=== PATIENT | female | born 1940 | race Caucasian/White ===

== ENCOUNTER 2017-09-18 01:27 | Emergency (ER) | payer MEDICARE ==
[2017-09-18] MEDS ORDERED: Ondansetron INJ* 2 MG/ML VIAL IV ONE (02:11)
[2017-09-18] MEDS ORDERED: Morphine INJ* 4 MG/ML 1 ML CARPUJECT IV ONE (02:11)
[2017-09-18] MEDS ORDERED: NS 0.9% 1000 ML* 1,000 ML IV ONE (02:11)
--- OUTSIDE RECORDS SUMMARY | 2017-09-18 02:21 | XMS REPORT ---
:1940 External Reference #:[id number] Author Organization [employer] Address [address] [place] [address] Phone [phone] Care Team Providers Name Role Phone Kenneth Cid MD Care Team Information Telephone Operator Unavailable Kenneth Cid MD Primary Care Physician Unavailable Payers Type Date Identification Numbers Payment Provider Subscriber Commercial Policy Number: [id number] BS [employer] Nneka Ortiz PayID: [id number] [address] [address] [place] [address] Problems Description No Information Family History Date Family Member(s) Problem(s) Comments General Asthma And Allergies General Hearing Loss Social History Type Date Description Comments Marital Status Marital Status Occupation Retired Occupation Retired Cigarette Use Never Smoked Cigarettes Cigarette Use Never Smoked Cigarettes ETOH Use Drinks Alcoholic Beverages Rarely ETOH Use Rare Use Of Alcohol Recreational Drug Use Never Used Drugs Recreational Drug Use Never Used Drugs Allergies, Adverse Reactions, Alerts Date Description Reaction Status Severity Comments 11/27/2008 NKDA active 04/05/2013 No Known Drug Allergy active 04/05/2013 Dust active 04/05/2013 Pollen active Medications Medication Date Status Form Strength Qnty SIG Indications Ordering Provider Ambien Active Unknown Janumet Active Tablets 50-1000 Unknown Janumet Active bid Unknown 00 Meloxicam Active Tablets 7.5mg 10tabs qday Unknown Zyrtec Active Unknown 00 Vitamind D Active Unknown 00 Ambien Active Tablets 5mg 10tabs 1 po hs Unknown 00 prn Zyrtec Allergy Active Tablets 10mg 1 by Unknown 00 mouth every day Meloxicam Active Tablets 1 by Unknown 00 mouth every day Glimepiride Active Tablets Unknown 00 Aspirin Low Active Tablets 1 by Unknown Dose 00 mouth every day Vital Signs Date Vital Result Comment 09/15/2017 Weight 227.00 lb Height 65 inches 5'5" BMI (Body Mass Index) 37.8 kg/m2 Heart Rate 78 /min O2 % BldC Oximetry 90 % Body Temperature 98.6 F Pain Level 0 01/26/2017 Weight 225.00 lb Height 65 inches 5'5" BMI (Body Mass Index) 37.4 kg/m2 BP Systolic 127 mmHg BP Diastolic 92 mmHg Heart Rate 91 /min O2 % BldC Oximetry 90 % Body Temperature 96.6 F Pain Level 0 09/28/2014 Weight 223.00 lb Height 65 inches 5'5" BMI (Body Mass Index) 37.1 kg/m2 BP Systolic 128 mmHg BP Diastolic 80 mmHg Heart Rate 85 /min O2 % BldC Oximetry 92 % Body Temperature 97.5 F Pain Level 0 04/05/2013 Weight 225.00 lb Height 64.5 inches 5'4.50" BMI (Body Mass Index) 38.0 kg/m2 BP Systolic 134 mmHg BP Diastolic 88 mmHg Heart Rate 78 /min O2 % BldC Oximetry 92 % Body Temperature 98.4 F 11/27/2008 Weight 212.00 lb HT And WT Per PT Height 65 inches 5'5" BMI (Body Mass Index) 35.3 kg/m2 BP Systolic 126 mmHg BP Diastolic 72 mmHg Results Description No Information Procedures Date CPT Code Description Status 04/05/2013 93357 Remove Impacted Cerumen Completed 11/27/2008 62755 Remove Impacted Cerumen Completed Encounters Type Date Location Provider CPT E/M Dx Office Visit 01/26/2017 3:00p Main Office Dedrick Lopez M.D. 28396 H93.13 H90.5 Office Visit 09/28/2014 1:00p Main Office Dedrick Lopez M.D. 57241 380.4 389.10 388.31 Office Visit 04/05/2013 11:30a [place] [address] 380.4 478.0 Office Visit 11/27/2008 4:00p [place] [address] 380.4 Plan of Care No Information Available
[2017-09-18 02:41] LABS: INR 0.86 (0.77-1.02)
[2017-09-18 02:49] LABS: EGFR Non-African American 76.5 (>60)
[2017-09-18 02:56] LABS: ABS Basophils 0 10^3/ul (0-0.2); ABS Eosinophils 0.3 10^3/ul (0-0.6); ABS Lymphocytes 2.1 10^3/ul (1.0-4.8); ABS Monocytes 0.7 10^3/ul (0-0.8); ABS Neutrophils 5.7 10^3/ul (1.5-7.7); ABS Nucleated RBC 0 10^3/ul; Hematocrit 45 % (35-47); Hemoglobin 14.8 g/dl (12.0-16.0); Lymphocyte % 24.1 % (25-47); Mean Corpuscular HGB Conc 33 g/dl (31-36); Mean Corpuscular Hemoglobin 29 pg (27-31); Mean Corpuscular Volume 88 fL (80-97); Mean Platelet Volume 7.7 um3 (7.4-10.4); Nucleated Red Blood Cells % 0.1; Platelet Count 176 10^3/ul (150-450); Red Blood Count 5.11 10^6/ul (4.0-5.4); Red Cell Distribution Width 14 % (10.5-15); White Blood Count 8.8 10^3/ul (3.5-10.8)
[2017-09-18 04:03] LABS: Urine Appearance Cloudy; Urine Blood 3+ (Negative); Urine Color Yellow; Urine Ketones 1+ (Negative); Urine Protein 1+(30 mg/dL) (Negative); Urine Specific Gravity 1.018 (1.010-1.030); Urine Urobilinogen Negative (Negative)
[2017-09-18] MEDS ORDERED: Tamsulosin CAP* 0.4 MG PO ONE (04:47)
[2017-09-18 05:04] VITALS: BP 138/77
--- NOTE | 2017-09-18 08:43 | RAD ---
CLINICAL HISTORY: Right flank pain COMPARISON: July 23, 2015 TECHNIQUE: Multiple contiguous axial CT scans were obtained of the abdomen and pelvis, without intravenous contrast enhancement. Coronal and sagittal multiplanar reformations are submitted for review. Oral contrast was not administered. FINDINGS: LUNG BASES: The lung bases are clear. LIVER: The liver is normal in shape, size, contour, and attenuation. BILE DUCTS: There is no intrahepatic or extrahepatic biliary dilatation. GALLBLADDER: The gallbladder is normal, without pericholecystic inflammatory change. PANCREAS: The pancreas is normal, without mass or ductal dilatation. SPLEEN: Normal in size and appearance. There is a calcified splenic artery aneurysm measuring 1.2 cm. This can be identified on the previous examination and is stable. UPPER GI TRACT: Evaluation of the gastrointestinal tract is limited by incomplete gastric distention. The upper GI tract is unremarkable. SMALL BOWEL AND MESENTERY: The small bowel is normal in contour, course, and caliber. There is no obstruction or dilatation. COLON: There are multiple diverticula of the descending and sigmoid colon. There is no pericolonic inflammatory change. ADRENALS: Normal bilaterally. KIDNEYS: There are left renal calyceal stones measuring up to 0.4 cm. There is a 0.5 cm calculus of the right UPJ with moderate pelvocaliectasis. BLADDER: The bladder is smooth in contour. PELVIC ORGANS: The pelvic organs are not visualized. AORTA: The aorta is normal. IVC: Unremarkable LYMPH NODES: There is no lymphadenopathy by size criteria. ABDOMINAL WALL: There is no evidence for abdominal wall hernia. BONES AND SOFT TISSUES: There are mild diffuse degenerative changes. OTHER: None IMPRESSION: 1. BILATERAL NEPHROLITHIASIS INCLUDING A 0.5 CM CALCULUS OF THE RIGHT UPJ. THERE IS RIGHT-SIDED HYDRONEPHROSIS. 2. STABLE CALCIFIED SPLENIC ARTERY ANEURYSM. 3. DIVERTICULOSIS.
--- NOTE | 2017-09-24 03:50 | ED ---
Jordan Costello Rebecca, scribed for Arslan Tabares MD on 09/18/17 at 0151 . Back Pain - HPI Summary HPI Summary: Pt is a 77 y/o F BIBA who presents to ED c/o R flank pain. Sx began last night at 1999 (~6 hours [employer]) and is currently moderate, ranked 7/10. Pain radiates into the RLQ. Additionally c/o N/V. Denies fever, chills. Was seen by Dr. Cruz on Wednesday (5 days ago) where she was diagnosed with a kidney stones that just entered the ureter via US. She was not started on any pain medication and has a CT scheduled for next week. Does not use O2 at home. - History of Current Complaint Chief Complaint: EDFlankPain Stated Complaint: FLANK PAIN Time Seen by Provider: 09/18/17 01:45 Hx Obtained From: Patient Onset/Duration: Lasting Hours, Still Present Onset/Duration: Still Present Back Pain Location: Is Discrete @ - Right flank Severity Currently: Moderate Pain Intensity: 7 Pain Scale Used: 0-10 Numeric Aggravating Symptom(s): Nothing Alleviating Symptom(s): Nothing Associated Signs And Symptoms: Negative: Fever - Allergies/Home Medications Allergies/Adverse Reactions: Allergies Allergy/AdvReac Type Severity Reaction Status Date / Time No Known Allergies Allergy Verified 09/02/15 08:08 PMH/Surg Hx/FS Hx/Imm Hx Endocrine/Hematology History: Reports: Hx Diabetes - NIDDM Denies: Hx Bone Marrow Disease, Hx Sickle Cell Disease, Hx Thyroid Disease, Hx Anemia Cardiovascular History: Denies: Hx Angina, Hx Cardiomegaly, Hx Congestive Heart Failure, Hx Coronary Artery Disease, Hx Hypertension, Hx Pacemaker/ICD, Hx Peripheral Vascular Disease, Hx Rheumatic Fever, Hx Valvular Heart Disease, Other Cardiovascular Problems/Disorders Respiratory History: Denies: Hx Asthma, Hx Pulmonary Edema, Hx Pulmonary Embolism, Hx Sleep Apnea , Other Respiratory Problems/Disorders GI History: Denies: Hx Cirrhosis, Hx Crohn's Disease, Hx Gastroesophageal Reflux Disease , Hx Hiatal Hernia, Hx Irritable Bowel, Hx Jaundice, Hx Ulcer, Other GI Disorders History: Reports: Hx Kidney Stones - IN THE PAST Denies: Hx Kidney Infection, Other Problems/Disorders Musculoskeletal History: Reports: Hx Arthritis - ALL OVER-ON [place] Denies: Hx Bursitis, Hx Tendonitis, Other Musculoskeletal History Sensory History: Reports: Hx Cataracts - S/P CATARACT REMOVAL, Hx Contacts or Glasses - READING GLASSES Denies: Hx Glaucoma, Hx Hearing Aid Opthamlomology History: Reports: Hx Cataracts - S/P CATARACT REMOVAL, Hx Contacts or Glasses - READING GLASSES Denies: Hx Glaucoma Neurological History: Denies: Hx Headaches, Hx Migraine, Hx Seizures, Other Neuro Impairments/ Disorders Psychiatric History: Denies: Hx Anxiety, Hx Depression - Cancer History Hx Chemotherapy: No - Surgical History Surgery Procedure, Year, and Place: 1989 [facility]ERECTOMY [facility] 1989 [facility] 2001 L [facility]YE LID [facility]CER [facility] 2001 FX R [facility]. 2008 FX R ANKLE [facility]. 2015 KIDNEY STONE [facility]. [facility] . 2011-LEFT EYE CATARACT REMOVED. 2011- RIGHT EYE CATARACT REMOVED Hx Anesthesia Reactions: No Infectious Disease History: No Infectious Disease History: Denies: Hx Hepatitis, Traveled Outside the [place] in Last 30 Days - Family History Known Family History: Positive: Diabetes, Other - CA - Social History Alcohol Use: Rare Alcohol Amount: 1 PER MONTH Substance Use Type: Reports: None Smoking Status (MU): Never Smoked Tobacco Have You Smoked in the Last Year: No Review of Systems Negative: Fever, Chills Positive: Vomiting, Nausea Positive: flank pain - Right All Other Systems Reviewed And Are Negative: Yes Physical Exam - Summary Physical Exam Summary: VITAL SIGNS: Reviewed. GENERAL: ~Patient is a well-developed and nourished female who is lying comfortable in the stretcher. Patient is not in any acute respiratory distress. HEAD AND FACE: No signs of trauma. No ecchymosis, hematomas or skull depressions. No sinus tenderness. EYES: PERRLA, EOMI x 2, No injected conjunctiva, no nystagmus. EARS: Hearing grossly intact. Ear canals and tympanic membranes are within normal limits. MOUTH: Oropharynx within normal limits. NECK: Supple, trachea is midline, no adenopathy, no JVD, no carotid bruit, no c- spine tenderness, neck with full ROM. CHEST: Symmetric, no tenderness at palpation LUNGS: Clear to auscultation bilaterally. No wheezing or crackles. CVS: Regular rate and rhythm, S1 and S2 present, no murmurs or gallops appreciated. ABDOMEN: Soft, RLQ and R CVA tenderness. No signs of distention. No rebound no guarding, and no masses palpated. Bowel sounds are normal. EXTREMITIES: FROM in all major joints, no edema, no cyanosis or clubbing. NEURO: Alert and oriented x 3. No acute neurological deficits. Speech is normal and follows commands. SKIN: Dry and warm Triage Information Reviewed: Yes Vital Signs On Initial Exam: Initial Vitals Temp Pulse Resp BP Pulse Ox 97.4 F 79 18 144/74 90 09/18/17 01:40 09/18/17 01:40 09/18/17 01:40 09/18/17 01:40 09/18/17 01:40 Vital Signs Reviewed: Yes Diagnostics - Vital Signs Vital Signs Temp Pulse Resp BP Pulse Ox 09/18/17 01:40 97.4 F 79 18 144/74 90 - Laboratory Result Diagrams: 09/18/17 02:45 09/18/17 02:24 Lab Statement: Any lab studies that have been ordered have been reviewed, and results considered in the medical decision making process. - CT CT Abd/Pel CT Interpretation: Positive (See Comments) - Obstructive uropathy. ED physician reviewed this report. Pending official report. CT Interpretation Completed By: Radiologist Re-Evaluation - Re-Evaluation First Eval Re-Evaluation Time: 04:45 Change: Improved Comment: Pt is pain free. Pt had no fever. SHe will be D/C to home to follow up with Dr. Cruz. Back Pain Course/Dx - Course Assessment/Plan: Pt is a 77 y/o F BIBA who presents to ED c/o moderate R flank pain with radiation to the RLQ since 1999. Additionally c/o N/V. Denies fever, chills. Was seen by Dr. Cruz on Wednesday (5 days ago) where she was diagnosed with a kidney stones that just entered the ureter via US. Blood work and a UA were done. CT Abd/Pel revealed obstructive uropathy. In the ED course, pt received fluids, flomax, zofran, and morphine which resolved pain. Pt will be discharged to home with Dx of right ureteral stone with a follow up with Dr. Cruz and Rx for Percocet and flomax. She understands and agrees. - Diagnoses Provider Diagnoses: Right ureteral stone Discharge - Sign-Out/Discharge Documenting (check all that apply): Discharge/Admit/Transfer - Discharge - Discharge Plan Condition: Stable Disposition: HOME Prescriptions: oxyCODONE/Acetamin 5/325 MG* [Percocet 5/325 TAB*] 1 tab PO Q6H PRN #14 tab MDD 4 PRN Reason: Pain Tamsulosin CAP* [Flomax CAP*] 0.4 mg PO BEDTIME #7 cap Patient Education Materials: Ureteral Stones (ED) Referrals: Kenneth Cid MD [Primary Care Provider] - 3 Days Eddie Cruz MD [Medical Doctor] - 09/21/17 Additional Instructions: RETURN TO ED FOR ANY NEW OR RETURNING SYMPTOMS. The documentation as recorded by the Jordan samuels Rebecca accurately reflects the service I personally performed and the decisions made by Rayshawn sands Abdul, MD.
== END 2017-09-18 05:03 | disposition home or self-care (01) ==
LOC: ED 01:27
DX: N20.1 Calculus of ureter (principal); R11.2 Nausea with vomiting, unspecified; R10.84 Generalized abdominal pain
CPT/HCPCS: 36415; 74176; 80053; 81003; 81015; 85025; 85610; 85730; 86140; 87086; 96374; 99284; J2270

== ENCOUNTER 2017-09-24 05:59 | Day surgery (SDC) | payer MEDICARE ==
--- NOTE | 2017-09-24 06:29 | HP ---
CC: Dr. Kenneth Cid * HISTORY AND PHYSICAL: DATE OF PLANNED ADMISSION AND SURGERY: 09/24/17 HISTORY OF PRESENT ILLNESS: Ms. Ortiz is a 77-year-old white female who is admitted with a proximal right ureteral calculus for cystoscopy, insertion of right ureteral stent, and possible right ureteroscopy and laser lithotripsy. Ms. Ortiz is a known stone former and had required shock wave lithotripsy of two left renal calculi measuring 2 cm and 7 mm in May 2015. She was known to have a 7 mm residual calculus in the right kidney which has been observed. The patient presented for her followup visit a few weeks ago. She was having no significant renal symptoms. She had a renal ultrasound in the office which showed a 7 mm calculus in the proximal right ureter associated with mild hydronephrosis. The patient was being worked up for the condition when she presented to the emergency room on 09/18/17 with symptoms of right renal colic. She had a noncontrast CT of the abdomen and pelvis which showed a 6 mm calculus at the right ureteropelvic junction associated with moderate right hydronephrosis. There were 4 mm nonobstructing calculi seen in the left kidney. In the emergency room, the patient was managed with fluids. She did fine and was sent home on tamsulosin and on pain medication as needed. She was reevaluated in my office and had a followup renal ultrasound which showed an 8 mm calculus in the proximal right ureter associated with moderate right hydronephrosis and decreased jets from the right orifice. Because of the above history, the size of the stone, and the persistent symptoms , the patient is brought in for the above procedure. PAST MEDICAL HISTORY AND SYSTEM REVIEW: She is type 2 diabetic, maintained on Janumet mg daily and on glipizide 1 mg daily. She has a history of asthma and is on Singulair as needed. She denies any cardiac disease. ALLERGIES: She denies any allergies to medications. PHYSICAL EXAMINATION GENERAL: She is an obese white female who is in no acute pain. VITAL SIGNS: Blood pressure 130/80, pulse of 90. LUNGS: Clear. HEART: Regular and rhythmic. No murmurs. ABDOMEN: Soft. No masses, no tenderness and no CVA tenderness. IMPRESSION: 7 mm proximal right ureteral calculus associated with moderate right hydronephrosis and decreased right ureteral jets and with a recent visit to the emergency room for renal colic. PLAN: Plan is for cystoscopy and placement of right ureteral stent. Will decide at that time depending upon the location of the stone and upon the ureteral lumen whether a right ureteroscopy and laser lithotripsy will be performed at the same time. Otherwise, the procedure will be staged. I discussed the above plans with the patient. All her questions were answered. [id number]/[facility] #: [id number] [facility]
[2017-09-24] MEDS ORDERED: HYDROmorphone INJ* 1 MG/ML CARPUJECT SYRINGE IV PRN (06:53)
[2017-09-24] MEDS ORDERED: oxyCODONE/Acetamin 5/325 MG* TAB PO PRN (06:53)
[2017-09-24] MEDS ORDERED: Naloxone* 0.4 MG/ML 1 ML VIAL IV PRN (06:53)
[2017-09-24] MEDS ORDERED: fentaNYL* 50 MCG/ML 2 ML VIAL (100 MCG VIAL) IV PRN (06:53)
[2017-09-24] MEDS ORDERED: Ondansetron INJ* 2 MG/ML VIAL IV PRN (06:53)
[2017-09-24] MEDS ORDERED: Iohexol 180 (CONTRAST) 10 ML SDV IV ONE (07:11)
[2017-09-24] MEDS ORDERED: Midazolam* 1 MG/ML 5 ML VIAL (5 MG) ONE (07:19)
[2017-09-24] MEDS ORDERED: Lidocaine 2% PF* 10 ML AMP ONE (07:20)
[2017-09-24] MEDS ORDERED: Chloroprocaine 2%* 20 ML VIAL ONE (07:20)
[2017-09-24] MEDS ORDERED: cefTRIAXone(*) 2 GM ADDV.VIAL IVPB ONE (07:21)
[2017-09-24] MEDS ORDERED: oxyCODONE/Acetamin 5/325 MG* TAB ONE (09:40)
[2017-09-24 09:42] VITALS: BP 153/89
--- NOTE | 2017-09-25 07:32 | OP ---
CC: Dr. Kenneth Cid OPERATIVE REPORT: DATE OF OPERATION: 09/24/17 DATE OF : 44 SURGEON: Eddie Cruz MD ANESTHESIOLOGIST: Gilma Bird MD ANESTHESIA: Spinal. PRE-OP DIAGNOSIS: Proximal right ureteral calculus (8 mm). POST-OP DIAGNOSIS: Proximal right ureteral calculus (8 mm). OPERATIVE PROCEDURE: 1. Cystoscopy. 2. Right ureteroscopy, laser lithotripsy and extraction of right ureteral calculus. 3. Right retrograde pyelography and placement of right ureteral stent (6-Hungarian ). INDICATION FOR PROCEDURE: Ms. Ortiz is a 77-year-old white female who is a known stone former and who was known to have a 7 to 8 mm calculus in the right kidney. She recently had an episode of right renal colic and noncontrast CT showed a 7-mm calculus in the proximal right ureter just distal to the ureteropelvic junction with associated moderate hydronephrosis. Because of the above history and findings and the size of the stone, its location, patient is brought in for the above procedure. PATHOLOGY: At cystoscopy, the bladder mucosa looked normal. There were no suspicious or bladder lesion seen. A cystocele was noted. Upon right ureteroscopy, a 7 to 8 mm calculus was noted impacted in the proximal right ureter about 2 cm distal to the ureteropelvic junction. The calculus had gross appearance of calcium oxalate stone. Right retrograde pyelography showed [id number] right hydronephrosis. DESCRIPTION OF PROCEDURE: After successful spinal anesthesia, the patient was placed in the lithotomy position and was prepped and draped for a cystoscopy. Cystoscopy was performed, the bladder was carefully inspected and the above findings were noted. The right ureteral orifice was identified with some difficulty due to the presence of the cystocele. A flexible-tip guidewire was then introduced in the right orifice and positioned in the area of the right renal pelvis. The ureter was dilated using the 5-Hungarian and 8-Hungarian open-ended catheters. A 6.5 semirigid ureteroscope was then introduced inside the bladder. A flexible - tip basket was introduced through the port of the ureteroscope and its flexible tip was passed inside the right ureteral orifice alongside the guidewire. That allowed the atraumatic introduction of the ureteroscope. The ureter was relatively easy to intubate and the whole ureteral wall was inspected. The stone was identified in the proximal ureter. The basket was then deployed beyond the stone to prevent its proximal migration. A 550 micron laser fiber was then introduced through the other port of the ureteroscope and using laser the stone was fragmented into 3 fragments. Care was taken not to cause any injury to the ureteral wall. The stone fragments were then extracted with the basket. Final inspection showed no evidence of any ureteral wall injury and no residual stone fragments. Retrograde pyelography was then performed showing no extravasation, and moderate right hydronephrosis. A size 6-Hungarian stent was then placed with the proximal end coiling in the renal pelvis and the distal end coiling inside the bladder. There was good drainage of contrast from the kidney and no extravasation. The patient tolerated the procedure well and left the operating room in good condition. The plan is to keep the stent in place for about 10 days, it will be removed in the office under local anesthesia. [id number]/[facility] #: [id number] ARPIT
--- NOTE | 2017-09-27 10:35 | RAD ---
Indication: RIGHT stent placement. Comparison: September 23, 2017 abdomen radiograph and September 18, 2017 CT. Technique: 12 seconds fluoroscopy. 4 spot images obtained. Report: RIGHT retrograde pyelogram demonstrates severe pelvicaliectasis. RIGHT ureteral stent in place. IMPRESSION: Procedural fluoroscopy. CPT II Codes: G9500
== END 2017-09-24 09:50 | disposition home or self-care (01) ==
LOC: OR 05:59
PROVIDERS: ATTEND Urology
DX: N13.2 Hydronephrosis with renal and ureteral calculous obstruction (principal); Z87.442 Personal history of urinary calculi; E11.9 Type 2 diabetes mellitus without complications; Z79.84 Long term (current) use of oral hypoglycemic drugs; J45.909 Unspecified asthma, uncomplicated; Z68.37 Body mass index [BMI] 37.0-37.9, adult; M19.90 Unspecified osteoarthritis, unspecified site
CPT/HCPCS: 74420; 82365; A9270-GY; C1876; J0696; J2001; J2250; J2400